=== PATIENT | male | born 1960 | race Caucasian/White ===

== ENCOUNTER → 2017-09-10 | Outpatient (CLI) | payer BC | END | disposition home or self-care (01) | LOC: US 09-05 07:30 | DX: E11.65 Type 2 diabetes mellitus with hyperglycemia (principal); R55 Syncope and collapse ==

== ENCOUNTER → 2021-11-27 | Outpatient (CLI) | payer BC | END | disposition home or self-care (01) | LOC: RAD 11:40 | PROVIDERS: ATTEND Nurse Practitioner Family | DX: U07.1 COVID-19 (principal); E11.65 Type 2 diabetes mellitus with hyperglycemia ==